=== PATIENT | female | born 1930 | race Caucasian/White ===

== ENCOUNTER 2021-07-02 06:55 | Inpatient (IN) | payer OTHER ==
[~2021-07-02] VITALS: Ht 160 cm; Wt 68.5 kg
--- NOTE | 2021-07-02 07:04 | NUR ---
TO ER BED 11. BIBRA 878 FROM HOME C/O GROUND LEVEL FALL, TRIPPED WHILE MAKING BREAKFAST. PT DENIES KO OR HEAD TRAUMA. NO VISIBLE TRAUMA OR INJURIES NOTED. NOT IN RESPIRATORY DISTRESS. FALL PRECAUTIONS IN PLACE. AWAITING MD RODRIGUEZ
--- NOTE | 2021-07-02 08:13 | NUR ---
dr. butler speaking to dr. coronado
[2021-07-02 08:15] LABS: BASOPHILS # (AUTO) 0.1 K/uL (0.0-0.2); BASOPHILS % (AUTO) 0.9 % (0.0-2.0); HEMATOCRIT 36 % (33-45); HEMOGLOBIN 11.2 g/dL (11.5-14.8); LYMPHOCYTES # (AUTO) 2.2 K/uL (0.8-4.8); LYMPHOCYTES % (AUTO) 31.2 % (20.0-44.0); MEAN CORPUSCULAR HGB CONC 31 g/dl (31.0-36.0); MEAN CORPUSCULAR VOLUME 86 fL (82-100); MONOCYTES # (AUTO) 0.5 K/uL (0.1-1.30); MONOCYTES % (AUTO) 7.6 % (2.0-12.0); NEUTROPHILS # (AUTO) 3.8 K/uL (1.8-8.9); NEUTROPHILS % (AUTO) 54.3 % (43.0-81.0); PLATELET COUNT (AUTO) 275 K/uL (150-450); RED BLOOD CELL COUNT(AUTO) 4.16 MIL/uL (4.0-5.2); WHITE BLOOD COUNT (AUTO) 6.9 K/uL (4.3-11.0)
--- NOTE | 2021-07-02 08:19 | NUR ---
COVID SWAB DONE AND SENT TO LAB
--- NOTE | 2021-07-02 08:29 | NUR ---
URINE COLLECTED AND SENT TO LAB
--- NOTE | 2021-07-02 08:29 | NUR ---
SEEN BY DR TELLEZ
[2021-07-02 08:35] LABS: CALCIUM, SERUM 9.3 mg/dL (8.5-10.1); CARBON DIOXIDE 22 mmol/L (21-32); CHLORIDE 108 mmol/L (98-107); CREATININE 1.4 mg/dL (0.6-1.3); GLUCOSE 108 mg/dL (74-106); POTASSIUM 3.9 mmol/L (3.5-5.1); SODIUM SERUM 141 mmol/L (136-145); UREA NITROGEN, BLOOD 21 mg/dL (7-18)
[2021-07-02] MEDS ORDERED: LOSA100T31 PO (08:36)
[2021-07-02] MEDS ORDERED: TRAM50TA2 PO (08:36)
[2021-07-02] MEDS ORDERED: HYDR-4076 PO (08:36)
[2021-07-02] MEDS ORDERED: OMEP40CA21 PO (08:36)
[2021-07-02] MEDS ORDERED: VENL75TA4 PO (08:36)
[2021-07-02 09:44] LABS: BILIRUBIN,URINE NEGATIVE (NEGATIVE); COLOR,URINE YELLOW (YELLOW); LEUKOCYTE ESTERASE ,URINE MODERATE (NEGATIVE); NITRITE, URINE NEGATIVE (NEGATIVE); PROTEIN,URINE 30 mg/dl (NEGATIVE); UGLUCOSE NEGATIVE (NEGATIVE)
[2021-07-02 10:12] LABS: BACTERIA,URINE Many /HPF (None Seen); SQUAMOUS EPITHELIAL CELL,UR Few /HPF (None Seen); WBC,URINE TOO NUMEROUS TO COUN /HPF (0-3)
[2021-07-02] MEDS ORDERED: ONDANSETRON HCL/PF 4 MG/2 ML VIAL IVP PRN (15:30)
[2021-07-02] MEDS ORDERED: Z GUARD REMEDY 4 OZ OINT TP PRN (15:30)
[2021-07-02] MEDS ORDERED: IV NS 0.9% 1,000 ML IV PRN (15:30)
[2021-07-02] MEDS ORDERED: CEFTRIAXONE 1 G in IV D5W 50 ML IV ONE (15:30)
--- NOTE | 2021-07-02 17:34 | NUR ---
FOOD TRAY PROVIDED, TOLERATED WELL
[2021-07-02] MEDS: hydrALAZINE HCL 25 MG TABLET PO SCH (18:00)
[2021-07-02] MEDS ORDERED: hydrALAZINE HCL 50 MG TABLET ONE (18:43)
[2021-07-02] MEDS: IV D5/ 0.9% NACL 1,000 ML IV PRN (18:45)
--- NOTE | 2021-07-02 20:22 | NUR ---
REPORT GIVEN TO СЕРГЕЙ PACK
[2021-07-02 20:30] VITALS: BP 115/46
--- NOTE | 2021-07-02 20:36 | NUR ---
PT TRANSFERRED, NO ACUTE DISTRESS NOTED, VSS.
[2021-07-02 20:50] VITALS: BP 115/46
--- NOTE | 2021-07-02 20:50 | NUR ---
MS RN ADMITTING NOTES ADMITTED THIS PATIENT FROM ER VIA STRETCHER. PATIENT IS AWAKE, ALERT AND ORIENTED X 2-3 WITH MILD CONFUSION. BREATHING IS EVEN AND NONLABORED. NO SOB NOTED. IN NO ACUTE DISTRESS NOTED. WITH IV ACCESS AT LEFT AC G#18 INFUSING WITH D5NS 1L REGULATED AT 80 ML/HR; PATENT AND INTACT. ABLE TO MAKE NEEDS KNOWN. SAFETY MEASURES IMPLEMENTED: CALL LEDEZMA AND TABLE WITHIN EASY REACH, SIDE RAILS UP X 2, BED IN LOWEST LOCKED POSITION. WILL CONTINUE TO MONITOR.
[2021-07-02] MEDS: TRAMADOL HCL 50 MG TABLET PO PRN (21:53)
--- NOTE | 2021-07-02 21:53 | NUR ---
MS RN NOTES COMPLAINED OF PAIN ON HER LOWER BACK WITH SCALE OF 8/10; PRN TRAMADOL 50 MG 1 TABLET GIVEN PO ORDERED.
--- NOTE | 2021-07-03 07:00 | NUR ---
MS RN CLOSING NOTES PATIENT IS AWAKE, ALERT AND ORIENTED X 1. BREATHING IS EVEN AND UNLABORED. NO SOB NOTED. DENIES ANY PAIN OR DISCOMFORT. SAFETY MEASURES IN PLACED. NEEDS ATTENDED TO. ENDORSED TO MORNING SHIFT FOR KERLINE.
--- NOTE | 2021-07-03 07:30 | NUR ---
MS RN OPENING NOTES RECEIVED PATIENT IN BED, AWAKE, ALERT AND ORIENTED X 2-3 WITH PERIODS OF CONFUSION NOTED. BREATHING IS EVEN AND NONLABORED. NO SOB NOTED. IN NO ACUTE DISTRESS NOTED. NO COMPLAINTS OF PAIN AT HIS TIME. WITH IV ACCESS AT LEFT AC G#18 INFUSING WITH D5NS 1L REGULATED AT 80 ML/HR; PATENT AND INTACT. ABLE TO MAKE NEEDS KNOWN. SAFETY MEASURES IMPLEMENTED: CALL LIGHT AND TABLE WITHIN EASY REACH, SIDE RAILS UP X 2, BED IN LOWEST LOCKED POSITION. WILL CONTINUE TO MONITOR PATIENT ACCORDINGLY.
[2021-07-03 08:00] VITALS: BP 144/60
[2021-07-03] MEDS: hydrALAZINE HCL 25 MG TABLET PO SCH ×2 (08:13→16:05)
[2021-07-03] MEDS: IV D5/ 0.9% NACL 1,000 ML IV PRN ×2 (09:33→22:39)
[2021-07-03 12:10] LABS: BASOPHILS % (AUTO) 0.6 % (0.0-2.0); EOSINOPHILS % (AUTO) 6.3 % (0.0-6.0); HEMATOCRIT 34 % (33-45); HEMOGLOBIN 10.5 g/dL (11.5-14.8); LYMPHOCYTES # (AUTO) 1.6 K/uL (0.8-4.8); LYMPHOCYTES % (AUTO) 20.6 % (20.0-44.0); MEAN CORPUSCULAR HGB CONC 31 g/dl (31.0-36.0); MEAN CORPUSCULAR VOLUME 87 fL (82-100); MONOCYTES # (AUTO) 0.6 K/uL (0.1-1.30); MONOCYTES % (AUTO) 7.7 % (2.0-12.0); NEUTROPHILS # (AUTO) 4.9 K/uL (1.8-8.9); NEUTROPHILS % (AUTO) 64.8 % (43.0-81.0); PLATELET COUNT (AUTO) 230 K/uL (150-450); RED BLOOD CELL COUNT(AUTO) 3.86 MIL/uL (4.0-5.2); WHITE BLOOD COUNT (AUTO) 7.6 K/uL (4.3-11.0)
[2021-07-03 12:41] LABS: CALCIUM, SERUM 8.3 mg/dL (8.5-10.1); CARBON DIOXIDE 21 mmol/L (21-32); CHLORIDE 109 mmol/L (98-107); CREATININE 1.1 mg/dL (0.6-1.3); GLUCOSE 149 mg/dL (74-106); MAGNESIUM 1.8 mg/dL (1.8-2.4); PHOSPHORUS 3.4 mg/dL (2.5-4.9); SODIUM SERUM 138 mmol/L (136-145); UREA NITROGEN, BLOOD 18 mg/dL (7-18)
[2021-07-03] MEDS ORDERED: POTASSIUM CHLORIDE 20 MEQ TAB.PRT.SR PO SCH (13:30)
[2021-07-03 16:00] VITALS: BP 137/50
[2021-07-03] MEDS: CEFTRIAXONE 1 G in IV D5W 50 ML IV SCH (17:06)
--- NOTE | 2021-07-03 17:20 | NUR ---
RN NOTES URINE CULTURE RESULTS IN. CALLED PSYCHIATRIC AND SPOKE TO DR. KOROMA, MADE AWARE WITH ORDER MARTINEZ AND CARRIED OUT.
[2021-07-03] MEDS: TRAMADOL HCL 50 MG TABLET PO PRN (18:21)
--- NOTE | 2021-07-03 18:27 | NUR ---
MS RN CLOSING NOTES PATIENT IN BED, AWAKE, ALERT AND ORIENTED X 2 WITH PERIODS OF CONFUSION NOTED. BREATHING IS EVEN AND NONLABORED. NO SOB NOTED. IN NO ACUTE DISTRESS NOTED. NO COMPLAINTS OF PAIN AT HIS TIME. WITH IV ACCESS AT LEFT AC G#18 INFUSING WITH D5NS 1L X 80 ML/HR; PATENT AND INTACT, NO S/SX OF INFILTRATION NOTED. PAIN MANAGED BY PAIN MANAGEMENT ORDERED. SAFETY MEASURES IMPLEMENTED: CALL LIGHT AND TABLE WITHIN EASY REACH, SIDE RAILS UP X 2, BED IN LOWEST LOCKED POSITION. ALL NEEDS ATTENDED AND MET, DUE MEDS GIVEN ORDERED. WILL ENDORSE TO ONCOMING SHIFT FOR KERLINE.
--- NOTE | 2021-07-03 19:00 | NUR ---
MS RN OPENING NOTES: RECEIVED PATIENT IN BED, AWAKE, A/O X2, FORGETFUL. NO S/S OF DISTRESS NOTED. NO COMPLAIN OF PAIN. CALL LIGHT WITHIN REACH. BED ALARM ON. BED IN LOWEST AND LOCKED POSITION. HOB ELEVATED.
[2021-07-03 20:00] VITALS: BP 133/57
[2021-07-03] MEDS: ACETAMINOPHEN 325 MG TABLET PO PRN (22:27)
--- NOTE | 2021-07-04 05:02 | NUR ---
INFORMED DR PAULSON RE: VTE SCORE OF 3.
[2021-07-04 07:08] LABS: CALCIUM, SERUM 8.6 mg/dL (8.5-10.1); CARBON DIOXIDE 21 mmol/L (21-32); CHLORIDE 113 mmol/L (98-107); CREATININE 0.9 mg/dL (0.6-1.3); GLUCOSE 110 mg/dL (74-106); POTASSIUM 3.8 mmol/L (3.5-5.1); SODIUM SERUM 142 mmol/L (136-145); UREA NITROGEN, BLOOD 14 mg/dL (7-18)
--- NOTE | 2021-07-04 07:15 | NUR ---
MS RN OPENING NOTES RECEIVED PATIENT IN BED, AWAKE, ALERT AND ORIENTED X 2 WITH PERIODS OF CONFUSION NOTED. BREATHING IS EVEN AND NONLABORED. NO SOB NOTED. IN NO ACUTE DISTRESS NOTED. NO COMPLAINTS OF PAIN AT HIS TIME. WITH IV ACCESS AT LEFT AC G#18 INFUSING WITH D5NS 1L REGULATED AT 80 ML/HR; PATENT AND INTACT. ABLE TO MAKE NEEDS KNOWN. SAFETY MEASURES IMPLEMENTED: CALL LIGHT AND TABLE WITHIN EASY REACH, SIDE RAILS UP X 2, BED IN LOWEST LOCKED POSITION. WILL CONTINUE TO MONITOR PATIENT ACCORDINGLY.
[2021-07-04 08:00] VITALS: BP 171/80
[2021-07-04] MEDS: hydrALAZINE HCL 25 MG TABLET PO SCH ×2 (08:31→17:15)
[2021-07-04] MEDS: IV D5/ 0.9% NACL 1,000 ML IV PRN (11:17)
[2021-07-04 16:00] VITALS: BP 145/64
[2021-07-04] MEDS: CEFTRIAXONE 1 G in IV D5W 50 ML IV SCH (17:32)
[2021-07-04] MEDS: TRAMADOL HCL 50 MG TABLET PO PRN (17:33)
--- NOTE | 2021-07-04 18:35 | NUR ---
MS RN CLOSING NOTES PATIENT IN BED, AWAKE, ALERT AND ORIENTED X 2 WITH PERIODS OF CONFUSION NOTED. BREATHING IS EVEN AND NONLABORED. NO SOB NOTED. IN NO ACUTE DISTRESS NOTED. NO COMPLAINTS OF PAIN AT HIS TIME. WITH IV ACCESS AT LEFT AC G#18 ONGOING D5NS 1L REGULATED AT 80 ML/HR; PATENT AND INTACT, NO S/SX OF INFILTRATION NOTED. ABLE TO MAKE NEEDS KNOWN. SAFETY MEASURES IMPLEMENTED: CALL LIGHT AND TABLE WITHIN EASY REACH, SIDE RAILS UP X 2, BED IN LOWEST LOCKED POSITION. PAIN MANAGED BY PAIN MEDICATION ORDERED. ALL NEEDS ATTENDED AND MET. DUE MEDS GIVEN ORDERED. WILL ENDORSE TO ONCOMING SHIFT FOR KERLINE.
--- NOTE | 2021-07-04 19:35 | NUR ---
MS RN OPENING NOTES PATIENT RECEIVED RESTING IN BED COMFORTABLY; A/OX2-3, WITH PERIODS OF MILD CONFUSION; BREATHING EVEN AND UNLABORED; NO SOB NOTED, TOLERATING ROOM AIR WELL; NO DISTRESS NOTED AT THIS TIME; PATIENT DENIES PAIN AT THIS TIME; L AC #20 INTACT AND PATENT, TOLERATING IVF WELL; NO S/S OF REDNESS OR INFILTRATION NOTED; SAFETY PRECAUTIONS IMPLEMENTED; BED LOCKED IN LOW POSITION; SIDE RAILSX2; CALL LIGHT WITHIN REACH; WILL CONT TO MONITOR AND CONT PLAN OF CARE
[2021-07-04 20:00] VITALS: BP 155/76
[2021-07-04 21:09] VITALS: BP 155/76
[2021-07-04] MEDS: ACETAMINOPHEN 325 MG TABLET PO PRN (23:45)
--- NOTE | 2021-07-05 00:09 | NUR ---
MS RN NOTES PATIENT CONFUSED, ASKING STAFF TO GIVE HER SON SOME WATER BECAUSE HE IS THIRSTY; PATIENT RE-ORIENTED, PER PATIENT, SHE HAS SEEN HER SON EVERY NIGHT AND STAFF KEEPS TELLING HER HER SON IS NOT IN ROOM WITH HER. CHARGE AWARE OF CONFUSION, WILL CONT TO MONITOR
[2021-07-05 03:07] VITALS: BP 179/79
--- NOTE | 2021-07-05 03:08 | NUR ---
MS RN NOTES PATIENT BP INCREASED FROM 154/77 TO 179/79, PATIENT GIVEN TYLENOL EARLIER, MD MADE AWARE; PER MD MONITOR PATIENT; CHARGE NURSE MADE AWARE, WILL CONT TO MONITOR
--- NOTE | 2021-07-05 06:30 | NUR ---
MS RN CLOSING NOTES PATIENT RESTING IN BED COMFORTABLY; A/OX2-3, WITH PERIODS OF MILD CONFUSION; BREATHING EVEN AND UNLABORED; NO SOB NOTED, TOLERATING ROOM AIR WELL; NO DISTRESS NOTED AT THIS TIME; PATIENT DENIES PAIN AT THIS TIME; L AC #20 INTACT AND PATENT, TOLERATING IVF WELL; NO S/S OF REDNESS OR INFILTRATION NOTED; ALL NEEDS RENDERED; PATIENT COMPLAINT OF MILD BACK ITCHINESS, RELIEVED WITH LOTION; SAFETY PRECAUTIONS IMPLEMENTED; BED LOCKED IN LOW POSITION; SIDE RAILSX2; CALL LIGHT WITHIN REACH; WILL ENDORSE KERLINE TO ONCOMING SHIFT;
[2021-07-05 08:00] VITALS: BP 165/73
--- NOTE | 2021-07-05 08:00 | NUR ---
MS RN OPENING NOTES RECEIVED PATIENT IN BED COMFORTABLY; A/OX2-3, WITH PERIODS OF MILD CONFUSION; BREATHING EVEN AND UNLABORED; NO SOB NOTED, TOLERATING ROOM AIR WELL; NO DISTRESS NOTED AT THIS TIME; PATIENT DENIES PAIN AT THIS TIME; LEFT AC #20G INTACT AND PATENT, TOLERATING IVF WELL; NO S/S OF REDNESS OR INFILTRATION NOTED; ALL NEEDS RENDERED; PATIENT COMPLAINT OF MILD BACK ITCHINESS, RELIEVED WITH LOTION; SAFETY PRECAUTIONS IMPLEMENTED; BED LOCKED IN LOW POSITION; SIDE RAILSX2; CALL LIGHT WITHIN REACH; WILL CONTINUE WITH THE PLAN OF CARE.
[2021-07-05] MEDS: hydrALAZINE HCL 25 MG TABLET PO SCH ×2 (08:44→17:11)
[2021-07-05] MEDS ORDERED: MEROPENEM 500 MG in IV NS 0.9% 50 ML IV SCH (09:00)
[2021-07-05] MEDS ORDERED: MAG HYDROX/AL HYDROX/SIMETH 30 ML UDC PO PRN (09:00)
[2021-07-05 16:59] VITALS: BP 141/78
[2021-07-05 17:11] VITALS: BP 150/75
[2021-07-05] MEDS: TRAMADOL HCL 50 MG TABLET PO PRN (17:11)
--- NOTE | 2021-07-05 18:00 | NUR ---
MS/WELFARE ELIGIBILITY WORKER NOTES PATIENT IS ALERT AND ORIENTED X2-3, ABLE TO MAKE NEEDS KNOWN. WITH PERIODS OF CONFUSION. STABLE ON ROOM AIR. PATIENT IS MEDICALLY STABLE AND DR. KOROMA ORDERED DISCHARGE TO SNF FOR FURTHER CARE. PATIENT IS GOING TO [facility], CALLED FACILITY TO ENDORSE PATIENT AND WAS ABLE TO SPEAK TO СЕРГЕЙ AU. PATIENT WILL RECEIVED IV ATB [facility] AT 21:00 AT THE FACILITY SO PATIENT LEFT HOSPITAL WITH IV ACCESS INTACT AND IN PLACED. PATIENT WAS PICKED UP BY EMT FOR TRANSPORTATION.
== END 2021-07-05 17:39 | DRG 689 ==
LOC: ER 07:02 → TRANSITION 18:18 → MED 20:14
PROVIDERS: ADMIT Internal Medicine; ATTEND Internal Medicine
DX: N39.0 Urinary tract infection, site not specified (principal); N17.0 Acute kidney failure with tubular necrosis; I10 Essential (primary) hypertension; Z20.822 Contact with and (suspected) exposure to COVID-19; Z79.899 Other long term (current) drug therapy; B96.20 Unspecified Escherichia coli [E. coli] as the cause of diseases classified elsewhere; W01.0XXA Fall on same level from slipping, tripping and stumbling without subsequent striking against object, initial encounter; Y92.009 Unspecified place in unspecified non-institutional (private) residence as the place of occurrence of the external cause
CPT/HCPCS: 36415; 70450-TC; 71045-TC; 80048-TC; 81001; 83735-TC; 84100-TC; 84484-TC; 85025-TC; 87081-TC; 87086-TC; 87186-TC; 97116-TC; 97530-TC; C9803; G0378; J0696; J2185; J2405; J7030; J7042; J7060